=== PATIENT | male | born 1985 | race Caucasian/White ===

== ENCOUNTER 2022-09-03 08:41 | Inpatient (IN) | payer OTHER ==
[2022-09-03 09:16] VITALS: BMI 18.3
[2022-09-03] MEDS ORDERED: IBUPROFEN 400 MG TABLET (FP) PO PRN (09:52)
[2022-09-03] MEDS ORDERED: LOPERAMIDE HCL 2 MG CAPSULE PO PRN (09:52)
[2022-09-03] MEDS ORDERED: NICOTINE 10 MG CARTRIDGE (INHALER) IH PRN (09:52)
[2022-09-03] MEDS ORDERED: P-EPHED 60MG/TRIPROLIDI 2.5MG TABLET PO PRN (09:52)
[2022-09-03] MEDS ORDERED: POLYETHYLENE GLYCOL (HEALTHYLAX) 3350 17 GM PACKET PO PRN (09:52)
[2022-09-03] MEDS ORDERED: DICYCLOMINE HCL 10 MG CAPSULE PO PRN (09:52)
[2022-09-03] MEDS ORDERED: NICOTINE POLACRILEX 4 MG GUM BUC PRN (09:52)
[2022-09-03] MEDS ORDERED: BUPRENORPHINE HCL 150 MCG, BUPRENORPHINE HCL 75 MCG BC ONE (09:52)
[2022-09-03] MEDS ORDERED: BUPRENORPHINE HCL 150 MCG, BUPRENORPHINE HCL 75 MCG BC PRN (09:52)
[2022-09-03] MEDS ORDERED: BENZOCAINE/MENTHOL (CHLORASEPTIC ) LOZENGE MM PRN (09:52)
[2022-09-03] MEDS ORDERED: NALOXONE HCL (KLOXXADO) 8 MG SPRAY NS PRN (09:52)
[2022-09-03] MEDS ORDERED: ACETAMINOPHEN 325 MG TABLET (FP) PO PRN ×2 (09:52)
[2022-09-03] MEDS ORDERED: MAG HYDROX/AL HYDROX/SIMETH 30 ML UNIT-DOSE CUP PO PRN (09:52)
[2022-09-03] MEDS ORDERED: MAGNESIUM HYDROX 2400MG/30ML ORAL SUSPENSION 30 ML CUP PO PRN (09:52)
[2022-09-03] MEDS ORDERED: ONDANSETRON *ODT* 4 MG TABLET SL PRN (09:52)
[2022-09-03] MEDS ORDERED: BISMUTH SUBSALICYLATE 262 MG/15 ML BTL PO PRN (09:52)
[2022-09-03] MEDS ORDERED: BUPRENORPHINE HCL 150 MCG FILM BC ONE (10:16)
[2022-09-03] MEDS ORDERED: cloNIDine HCL 0.1 MG TABLET ONE (10:17)
[2022-09-03] MEDS ORDERED: BUPRENORPHINE HCL 75 MCG FILM BC ONE (10:17)
[2022-09-03] MEDS: cloNIDine HCL 0.1 MG TABLET PO PRN ×2 (10:25→22:34)
[2022-09-03] MEDS: METHOCARBAMOL 500 MG TABLET PO PRN ×2 (11:03→22:34)
[2022-09-03] MEDS: NICOTINE 21 MG/24 HOURS TOPICAL PATCH TD SCH (11:03)
[2022-09-03] MEDS: diazePAM 5 MG TABLET PO PRN ×2 (11:04→18:56)
[2022-09-03] MEDS: PRENATAL VITAMINS W/ FOLIC ACID TABLET (FP) PO SCH (11:04)
[2022-09-03] MEDS: MELATONIN 5 MG TABLETS PO SCH (22:33)
[2022-09-03] MEDS: THIAMINE HCL 100 MG TABLET (FP) PO SCH (22:34)
[2022-09-04] MEDS ORDERED: BUPRENORPHINE HCL 150 MCG, BUPRENORPHINE HCL 75 MCG BC PRN
[2022-09-04] MEDS: BUPRENORPHINE HCL 150 MCG, BUPRENORPHINE HCL 75 MCG BC SCH ×2 (06:05→17:19)
[2022-09-04] MEDS: cloNIDine HCL 0.1 MG TABLET PO PRN ×2 (06:59→22:21)
[2022-09-04] MEDS: diazePAM 5 MG TABLET PO PRN (09:50)
[2022-09-04] MEDS: NICOTINE 21 MG/24 HOURS TOPICAL PATCH TD SCH (10:21)
[2022-09-04] MEDS: PRENATAL VITAMINS W/ FOLIC ACID TABLET (FP) PO SCH (10:21)
[2022-09-04] MEDS: IBUPROFEN 600 MG TABLET (FP) PO PRN (14:46)
[2022-09-04] MEDS: hydrOXYzine PAMOATE 25 MG CAPSULE (FP) PO PRN (14:49)
[2022-09-04 14:53] LABS: ALBUMIN 3.5 g/dl (3.4-5.0); CALCIUM 9.2 mg/dL (8.5-10.1)
[2022-09-04 14:55] LABS: BLOOD UREA NITROGEN 18.6 mg/dL (7-18)
[2022-09-04 14:56] LABS: CREATININE 0.8 mg/dL (0.55-1.3)
[2022-09-04 14:57] LABS: BILIRUBIN,TOTAL 0.2 mg/dL (0.2-1); TOT PROT 6.9 g/dl (6.4-8.2)
[2022-09-04] MEDS: THIAMINE HCL 100 MG TABLET (FP) PO SCH (22:13)
[2022-09-04] MEDS: MELATONIN 5 MG TABLETS PO SCH (22:13)
[2022-09-04] MEDS: METHOCARBAMOL 500 MG TABLET PO PRN (22:21)
[2022-09-05] MEDS: cloNIDine HCL 0.1 MG TABLET PO PRN ×3 (06:00→22:23)
[2022-09-05] MEDS: BUPRENORPHINE HCL 450 MCG FILM BC SCH ×2 (06:01→18:32)
[2022-09-05] MEDS: NICOTINE 21 MG/24 HOURS TOPICAL PATCH TD SCH (10:50)
[2022-09-05] MEDS: PRENATAL VITAMINS W/ FOLIC ACID TABLET (FP) PO SCH (10:50)
[2022-09-05] MEDS: IBUPROFEN 600 MG TABLET (FP) PO PRN (19:11)
[2022-09-05] MEDS: METHOCARBAMOL 500 MG TABLET PO PRN (22:23)
[2022-09-05] MEDS: THIAMINE HCL 100 MG TABLET (FP) PO SCH (22:23)
[2022-09-05] MEDS: MELATONIN 5 MG TABLETS PO SCH (22:23)
[2022-09-06] MEDS: METHOCARBAMOL 500 MG TABLET PO PRN ×2 (06:40→17:45)
[2022-09-06] MEDS: cloNIDine HCL 0.1 MG TABLET PO PRN ×3 (06:40→22:44)
[2022-09-06] MEDS: BUPRENORPHINE/NALOXONE 4 MG/1 MG FILM PACKET SL SCH ×2 (06:41→17:44)
[2022-09-06] MEDS: PRENATAL VITAMINS W/ FOLIC ACID TABLET (FP) PO SCH (10:22)
[2022-09-06] MEDS: NICOTINE 21 MG/24 HOURS TOPICAL PATCH TD SCH (10:22)
[2022-09-06] MEDS: THIAMINE HCL 100 MG TABLET (FP) PO SCH (22:15)
[2022-09-06] MEDS: MELATONIN 5 MG TABLETS PO SCH (22:15)
[2022-09-06] MEDS: hydrOXYzine PAMOATE 25 MG CAPSULE (FP) PO PRN (22:15)
[2022-09-07] MEDS ORDERED: BUPRENORPHINE/NALOXONE 8 MG/2 MG FILM PACKET SL ONE (06:00)
[2022-09-07 09:00] VITALS: BP 138/78; PULSE 97; RESP 18; TEMP 96.8
[2022-09-07] MEDS: NICOTINE 21 MG/24 HOURS TOPICAL PATCH TD SCH (10:28)
[2022-09-07] MEDS: PRENATAL VITAMINS W/ FOLIC ACID TABLET (FP) PO SCH (10:28)
== END 2022-09-07 10:00 | disposition home or self-care (01) | DRG 773 ==
LOC: YASAS 08:41 → Y6N 10:36 → Y3N 12:06
PROVIDERS: ADMIT Allergy & Immunology; ATTEND Allergy & Immunology
PROC: HZ2ZZZZ Detoxification Services for Substance Abuse Treatment (ICD-10-PCS; principal; 2022-09-03)
DX: F11.23 Opioid dependence with withdrawal (principal); F14.20 Cocaine dependence, uncomplicated; F17.210 Nicotine dependence, cigarettes, uncomplicated; U07.1 COVID-19; Z86.19 Personal history of other infectious and parasitic diseases
CPT/HCPCS: 36415; 70450-TC; 72125-TC; 74177-TC; 80053; 83690; 85025; 86780; 93005; 93010; C9803-CS; U0003; U0005